=== PATIENT | male | born 1995 | race African-American/Black ===

== ENCOUNTER 2018-10-17 07:13 | Emergency (ER) | payer OTHER ==
[2018-10-17 08:09] LABS: BASO % 0.3 % (0.0-1.0); EOS % 0.5 % (0.0-3.0); HEMATOCRIT 43.5 % (42.0-52.0); HEMOGLOBIN 14.7 g/dl (13.5-17.5); IMMATURE GRANULOCYTE % 0.1 % (0-3.0); LYMPH # 2.9 10^3/uL (1.5-6.5); LYMPH % 36.6 % (24.0-44.0); MEAN CORPUSCULAR HEMOGLOBIN 29.3 pg (27.0-33.0); MEAN CORPUSCULAR HGB CONC 33.8 g/dl (32.0-36.5); MEAN CORPUSCULAR VOLUME 86.8 fl (80.0-96.0); MONO # 0.4 10^3/uL (0.0-0.8); MONO % 4.4 % (0.0-5.0); NEUTROPHILS # 4.6 10^3/uL (1.8-7.7); NEUTROPHILS % 58.1 % (36.0-66.0); PLATELET COUNT, AUTOMATED 187 10^3/uL (150-450); RED BLOOD COUNT 5.01 10^6/uL (4.30-6.10); RED CELL DISTRIBUTION WIDTH 11.9 % (11.5-14.5)
[2018-10-17 08:38] LABS: ALBUMIN 4.4 GM/DL (3.2-5.2); ALBUMIN/GLOBULIN RATIO 1.33 (1.00-1.93); ALKALINE PHOSPHATASE 99 U/L (45-117); ALT/SGPT 25 U/L (12-78); ANION GAP 6 MEQ/L (8-16); AST/SGOT 15 U/L (7-37); BILIRUBIN,TOTAL 0.5 MG/DL (0.2-1.0); BLOOD UREA NITROGEN 9 MG/DL (7-18); CALCIUM LEVEL 9.1 MG/DL (8.5-10.1); CARBON DIOXIDE LEVEL 29 MEQ/L (21-32); CHLORIDE LEVEL 105 MEQ/L (98-107); CREATININE FOR GFR 1.09 MG/DL (0.70-1.30); GLOMERULAR FILTRATION RATE > 60.0 (>60); GLUCOSE, FASTING 104 MG/DL (70-100); POTASSIUM SERUM 3.9 MEQ/L (3.5-5.1); SODIUM LEVEL 140 MEQ/L (136-145); TOTAL PROTEIN 7.7 GM/DL (6.4-8.2)
[2018-10-17] MEDS: EXPOSURE KIT-ADULT 7 DAY SUPPLY PO (08:45)
[2018-10-17 09:18] LABS: HEPATITIS B SURFACE ANTIBODY POSITIVE (POSITIVE)
[2018-10-17 09:29] LABS: HEPATITIS B SURFACE ANTIGEN NEGATIVE (NEGATIVE)
[2018-10-17 09:50] LABS: CHLAMYDIA DNA AMPLIFICATION NEGATIVE (NEGATIVE); GC DNA AMPLIFICATION NEGATIVE (NEGATIVE)
[2018-10-17 09:57] LABS: HEPATITIS C VIRUS ABY INDEX 0.1 INDEX (<0.8)
== END 2018-10-17 08:51 | disposition home or self-care (01) ==
LOC: M ED 07:13
DX: Z20.2 Contact with and (suspected) exposure to infections with a predominantly sexual mode of transmission (principal)
CPT/HCPCS: 80053

== ENCOUNTER 2018-12-25 14:31 | Emergency (ER) | payer OTHER ==
[~2018-12-25] VITALS: Ht 170.2 cm; Wt 67.3 kg
[~2018-12-25 14:31] MED LIST: RALT40TA PO; TRUVTAB PO
[2018-12-25 16:45] LABS: CHLAMYDIA DNA AMPLIFICATION NEGATIVE (NEGATIVE); GC DNA AMPLIFICATION NEGATIVE (NEGATIVE)
[2018-12-25 17:18] VITALS: BP 128/64
== END 2018-12-25 17:19 | disposition home or self-care (01) ==
LOC: M ED 14:31
DX: Z11.3 Encounter for screening for infections with a predominantly sexual mode of transmission (principal); Z79.899 Other long term (current) drug therapy

== ENCOUNTER 2019-03-28 12:17 | Emergency (ER) | payer OTHER ==
[~2019-03-28] VITALS: Ht 172.7 cm; Wt 68.2 kg
[2019-03-28] MEDS ORDERED: NAPROXEN 250 MG TAB PO ONE (15:15)
--- NOTE | 2019-03-28 15:42 | REP ---
Clinical: Lower back pain and point tenderness . Technique: AP, lateral, bilateral oblique, and coned-down views. Findings: Alignment and lordosis is maintained. The vertebral bodies including transverse process and spinous processes are intact and normal. There is no evidence for acute fracture / compression injury or subluxation. No evidence for spondylolysis or spondylolisthesis. No significant degenerative change is noted. Impression: Normal lumbosacral spine radiograph series. Electronically Signed by Benjy Hernandes MD 03/28/2019 03:33 P
[2019-03-28] MEDS ORDERED: ZANA4TAB PO (15:49)
[2019-03-28] MEDS ORDERED: MOBI4TAB PO (15:49)
[2019-03-28 15:51] VITALS: BP 134/83
== END 2019-03-28 16:00 | disposition home or self-care (01) ==
LOC: M ED 12:17
DX: M54.5 Low back pain (principal); Z79.899 Other long term (current) drug therapy

== ENCOUNTER 2019-07-04 06:57 | Emergency (ER) | payer OTHER ==
[~2019-07-04] VITALS: Ht 170.2 cm; Wt 65.5 kg
[2019-07-04 06:57] VITALS: BP 167/95
[~2019-07-04 06:57] MED LIST changes: +MOBI4TAB PO; +ZANA4TAB PO
[2019-07-04] MEDS ORDERED: CYCL10TA PO (07:13)
[2019-07-04] MEDS ORDERED: IBUP80TA PO (07:13)
[2019-07-04] MEDS ORDERED: KETOROLAC 60 MG/2 ML VIAL (J1885) IM ONE (07:15)
== END 2019-07-04 07:55 | disposition home or self-care (01) ==
LOC: M ED 06:57
DX: S29.012A Strain of muscle and tendon of back wall of thorax, initial encounter (principal); X58.XXXA Exposure to other specified factors, initial encounter; Y92.89 Other specified places as the place of occurrence of the external cause; M62.830 Muscle spasm of back
CPT/HCPCS: 96372; 99283; J1885

== ENCOUNTER 2019-07-31 19:03 | Emergency (ER) | payer OTHER ==
[~2019-07-31] VITALS: Ht 170.2 cm; Wt 65.5 kg
[~2019-07-31 19:03] MED LIST changes: +CYCL10TA PO; +IBUP80TA PO
[2019-07-31] MEDS ORDERED: NS 1,000 ML IV ONE (19:45)
[2019-07-31 20:19] LABS: HEMATOCRIT 40.3 % (42.0-52.0); HEMOGLOBIN 13.7 g/dl (13.5-17.5); MEAN CORPUSCULAR HEMOGLOBIN 29.8 pg (27.0-33.0); MEAN CORPUSCULAR VOLUME 87.6 fl (80.0-96.0); PLATELET COUNT, AUTOMATED 191 10^3/uL (150-450)
[2019-07-31 20:55] LABS: ACETAMINOPHEN LEVEL < 2.0 UG/ML (10.0-30.0); ALBUMIN 3.8 GM/DL (3.2-5.2); ALT/SGPT 25 U/L (12-78); BILIRUBIN,DIRECT 0.1 MG/DL (0.0-0.2); BILIRUBIN,TOTAL 0.3 MG/DL (0.2-1.0); BLOOD UREA NITROGEN 9 MG/DL (7-18); CALCIUM LEVEL 8.6 MG/DL (8.5-10.1); CARBON DIOXIDE LEVEL 30 MEQ/L (21-32); CHLORIDE LEVEL 107 MEQ/L (98-107); CREATININE FOR GFR 0.96 MG/DL (0.70-1.30); ETHYL ALCOHOL (ETHANOL) 0.003 % (0.000-0.010); GLOMERULAR FILTRATION RATE > 60.0 (>60); GLUCOSE, FASTING 85 MG/DL (70-100); POTASSIUM SERUM 3.7 MEQ/L (3.5-5.1); SALICYLATE LEVEL < 1.7 MG/DL (5.0-30.0); SODIUM LEVEL 143 MEQ/L (136-145); TOTAL PROTEIN 6.9 GM/DL (6.4-8.2)
[2019-07-31 20:59] LABS: AMPHETAMINES LEVEL URINE NEGATIVE (NEGATIVE); BARBITURATES URINE NEGATIVE (NEGATIVE); BENZODIAZEPINES URINE NEGATIVE (NEGATIVE); CANNABINOIDS URINE NEGATIVE (NEGATIVE); COCAINE METABOLITE URINE NEGATIVE (NEGATIVE); METHADONE URINE NEGATIVE (NEGATIVE); OPIATES URINE NEGATIVE (NEGATIVE); PHENCYCLIDINE URINE NEGATIVE (NEGATIVE)
[2019-08-01] MEDS ORDERED: IBUP1TAB7 PO (04:53)
[2019-08-01] MEDS ORDERED: ARTIDRO2 OU (04:53)
[2019-08-01] MEDS ORDERED: CYCL10TA PO (04:53)
--- NOTE | 2019-08-01 07:10 | ECGEPIP ---
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
[2019-08-01 09:45] VITALS: BP 131/71
== END 2019-08-01 09:46 ==
LOC: M ED 19:03
DX: T50.992A Poisoning by other drugs, medicaments and biological substances, intentional self-harm, initial encounter (principal); X58.XXXA Exposure to other specified factors, initial encounter; Y92.89 Other specified places as the place of occurrence of the external cause; D55.0 Anemia due to glucose-6-phosphate dehydrogenase [G6PD] deficiency
CPT/HCPCS: 36415; 80048; 80076; 80307; 84443; 85027; 93005; 99285; G0480

== ENCOUNTER 2019-08-23 07:57 | Emergency (ER) | payer OTHER ==
[~2019-08-23] VITALS: Ht 170.2 cm; Wt 68.5 kg
[~2019-08-23 07:57] MED LIST changes: +ARTIDRO2 OU; +IBUP1TAB7 PO
--- NOTE | 2019-08-23 09:03 | REP ---
Three views soft tissue neck: 08/23/2019. Indication: Globus sensation. Foreign body search. Comparison: None. Findings: Soft tissues of the neck are normal. There is straightening of the cervical lordosis. There is no acute fracture, subluxation or dislocation. Impression: No foreign body identified. Electronically Signed by Rodolfo Rendon DO 08/23/2019 08:55 A
[2019-08-23] MEDS ORDERED: SUCRALFATE SUSP 1GM/10ML UD PO ONE (09:15)
[2019-08-23] MEDS ORDERED: SUCR1SS PO (09:49)
[2019-08-23 09:59] VITALS: BP 128/71
== END 2019-08-23 10:02 | disposition home or self-care (01) ==
LOC: M ED 07:57
DX: K20.8 Other esophagitis (principal)

== ENCOUNTER 2019-10-24 10:00 | Emergency (ER) | payer OTHER ==
[~2019-10-24] VITALS: Ht 170.2 cm; Wt 69.5 kg
[2019-10-24 10:00] VITALS: BP 130/67
[~2019-10-24 10:00] MED LIST changes: +SUCR1SS PO
[2019-10-24] MEDS ORDERED: PROT1TAB2 PO (10:49)
== END 2019-10-24 11:03 | disposition home or self-care (01) ==
LOC: M ED 10:00
DX: R13.10 Dysphagia, unspecified (principal); K20.9 Esophagitis, unspecified

== ENCOUNTER → 2019-10-25 | Outpatient (CLI) | payer OTHER ==
[~2019-10-25] MED LIST changes: +E-Z-GAS II EFFERVESCENT PACKET (SODIUM BICARB./CITRIC ACID/SIMETHICONE) As Ordered ONE; +E-Z-HD 98% w/w 340GM SUSP BTL As Ordered ONE; +E-Z-PAQUE 96% w/w SUSP 176GM BTL As Ordered ONE; +PROT1TAB2 PO
--- NOTE | 2019-10-26 09:03 | REP ---
Examination Requested: Upper G.I. Series With KUB Reason For Exam: Dysphasia Upper GI Air Contrast The procedure was performed by TROY Jeffers, under the direct supervision of Dr. Hernandes. The images were reviewed with Dr. Hernandes. The composite technician film shows no organomegaly or pathological masses. The intestinal gas pattern appears normal. Liquid barium and gas producing crystals were given in the erect position as well as liquid barium in the prone oblique position in order to perform a double contrast upper GI examination. The oral and pharyngeal stages of deglutition were unremarkable. Esophageal transport is efficient and there is no esophagitis, stricture, or mucosal ring noted. There is no hiatal hernia. Gastroesophageal reflux was not visualized throughout the course of the exam. The stomach mcpherson are normally outlined. The rugal folds are smooth and regular. There is no gastritis, neoplasm, ulcer disease noted. The duodenal mcpherson are normally outlined. The mucosal folds are smooth and regular. There is no duodenitis, peptic ulcer disease, or neoplasm noted. The visualized portion of the proximal small bowel appears normal in course and caliber. Impression: 1. Unremarkable upper GI. 0.7 minutes of fluoroscopy time was utilized for this procedure. Some fluoroscopic images are performed with last image hold technology. These images require no additional radiation. Reviewed by TROY Escudero 10/25/2019 12:57 P Electronically Signed by Benjy Hernandes MD 10/26/2019 08:54 A
== END ==
LOC: M RAD 10:56
PROVIDERS: ATTEND Emergency Medicine
DX: R13.10 Dysphagia, unspecified (principal)

== ENCOUNTER → 2020-03-09 | Outpatient (CLI) | payer OTHER ==
[~2020-03-09] MED LIST changes: -ARTIDRO2 OU; +CYCL-707 PO; -CYCL10TA PO; -E-Z-GAS II EFFERVESCENT PACKET (SODIUM BICARB./CITRIC ACID/SIMETHICONE) As Ordered ONE; -E-Z-HD 98% w/w 340GM SUSP BTL As Ordered ONE; -E-Z-PAQUE 96% w/w SUSP 176GM BTL As Ordered ONE; +POLYOPD OU
== END ==
LOC: M LABSMTC 09:28
PROVIDERS: ATTEND Anesthesiology
DX: Z01.818 Encounter for other preprocedural examination (principal); Z11.59 Encounter for screening for other viral diseases
CPT/HCPCS: C9803; U0002

== ENCOUNTER 2020-03-11 12:16 | Day surgery (SDC) | payer OTHER ==
[~2020-03-11] VITALS: Ht 170.2 cm; Wt 68.0 kg
[~2020-03-11 12:16] MED LIST changes: +NS 1,000 ML IV ONE
[2020-03-11] MEDS ORDERED: LIDOCAINE 2% 100MG/5ML SDV (FOR ANES.) As Ordered ONE (13:20)
[2020-03-11] MEDS ORDERED: propofoL 200 MG/20 ML VIAL As Ordered ONE (13:20)
[2020-03-11 14:10] VITALS: BP 135/85
--- NOTE | 2020-03-11 14:12 | ROOR ---
Patient Name: Magnus Brewer Procedure Date: 03/11/2020 1:37 PM Date of : 1995 Age: 24 Room: [facility] Gender: Male Note Status: Finalized Procedure: Upper GI endoscopy Indications: Globus sensation Providers: Christian Cameron MD Referring MD: ARTHUR ARTEAGA MD Requesting Provider: Medicines: Monitored Anesthesia Care Complications: No immediate complications. Procedure: Pre-Anesthesia Assessment: - The heart rate, respiratory rate, oxygen saturations, blood pressure, adequacy of pulmonary ventilation, and response to care were monitored throughout the procedure. The Endoscope was introduced through the mouth, and advanced to the second part of duodenum. The upper GI endoscopy was accomplished without difficulty. The patient tolerated the procedure well. Findings: The Z-line was regular and was found 40 cm from the incisors. The exam was otherwise without abnormality. No other significant abnormalities were identified in a careful examination of the stomach. The exam of the duodenum was otherwise normal. Impression: - Z-line regular, 40 cm from the incisors. - The examination was otherwise normal. - No specimens collected. - The examination was otherwise normal. Recommendation: - Patient has a contact number available for emergencies. The signs and symptoms of potential delayed complications were discussed with the patient. Return to normal activities tomorrow. Written discharge instructions were provided to the patient. - High fiber diet. - Discharge patient to home. - Follow an antireflux regimen. - Continue present medications. - Return to referring physician. - The findings and recommendations were discussed with the patient. Christian Cameron MD Christian Cameron MD 03/11/2020 2:11:37 PM Electronically signed by Christian Cameron MD Number of Addenda: 0 Note Initiated On: 03/11/2020 1:37 PM Estimated Blood Loss: Estimated blood loss: none.
== END 2020-03-11 14:31 | disposition home or self-care (01) ==
LOC: M OPP 12:16
PROVIDERS: ATTEND Internal Medicine Gastroenterology
DX: F45.8 Other somatoform disorders (principal); K21.9 Gastro-esophageal reflux disease without esophagitis

== ENCOUNTER 2020-09-10 08:53 | Day surgery (SDC) | payer OTHER ==
[~2020-09-10] VITALS: Ht 170.2 cm; Wt 68.4 kg
[~2020-09-10 08:53] MED LIST changes: +LR 1,000 ML IV ONE; -NS 1,000 ML IV ONE; +dexameTHASONE 4 MG/ML 1ML VIAL (J1100 PER 1MG) IV ONE
[2020-09-10] MEDS ORDERED: MIDAZOLAM INJ 2MG/2ML VIAL (J2250 PER 1MG) As Ordered ONE (09:20)
[2020-09-10] MEDS ORDERED: fentaNYL 100 MCG/2 ML INJECTION (J3010) As Ordered ONE ×2 (09:20→12:24)
[2020-09-10] MEDS ORDERED: ONDANSETRON 4MG/2ML VIAL As Ordered ONE (09:20)
[2020-09-10] MEDS ORDERED: propofoL 200 MG/20 ML VIAL As Ordered ONE (09:20)
[2020-09-10] MEDS ORDERED: ROCURONIUM BROMIDE 50 MG/5 ML VIAL As Ordered ONE (09:20)
[2020-09-10] MEDS ORDERED: dexameTHASONE 4 MG/ML 1ML VIAL (J1100 PER 1MG) As Ordered ONE (09:20)
[2020-09-10] MEDS ORDERED: SUGAMMADEX SODIUM 500 MG/5 ML VIAL (BRIDION) As Ordered ONE (09:20)
[2020-09-10] MEDS ORDERED: LIDOCAINE 2% 100MG/5ML SDV (FOR ANES.) As Ordered ONE (09:20)
[2020-09-10] MEDS ORDERED: oxyCODONE 5MG TAB PO PRN (11:45)
[2020-09-10] MEDS ORDERED: fentaNYL 100 MCG/2 ML INJECTION (J3010) IV PRN (11:45)
[2020-09-10] MEDS ORDERED: LR 1,000 ML IV SCH ×2 (11:45)
[2020-09-10] MEDS ORDERED: ONDANSETRON 4MG/2ML VIAL IV PRN (11:45)
[2020-09-10 13:10] VITALS: BP 141/87
[2020-09-11] MEDS ORDERED: HYDR1SOL PO (16:04)
--- NOTE | 2020-09-14 10:58 | RO ---
DATE OF OPERATION: 09/10/2020 SURGEON: Moi Eckert MD PREOPERATIVE DIAGNOSIS: Chronic tonsillitis, halitosis and adenoid hypertrophy. POSTOPERATIVE DIAGNOSIS: Chronic tonsillitis, halitosis and adenoid hypertrophy. ANESTHESIA: General. CLINICAL PREAMBLE: This 25-year-old man presented to the office with history of chronic halitosis, also noted to have chronic sore throat and numerous tonsilloliths. He also complains of chronic nasal congestion. Physical examination revealed presence of cryptic tonsils. Management options including surgery listed above had been discussed. The patient understood and consented to procedure. DESCRIPTION OF PROCEDURE: Patient was identified in the preoperative holding and brought to the operating room in stable condition. In supine position on the operating table, patient received general anesthesia followed by orotracheal intubation without incident. Patient was prepped and draped in the usual fashion for the procedure. The Aniyah-Seymour mouth gag was inserted and suspended. Attention was then turned to performing the revision adenoidectomy. The red rubber catheter was inserted via the right naris to retract the soft palate using a mirror, the hypertrophic adenoid tissue was visualized. Using the Coblator wand set at 7 for Coblation and 3 for coagulation, the hypertrophic adenoid tissue was ablated. Hemostasis was achieved. The right tonsil was medialized using curved Allis forceps. Mucosal incision was made over the superior pole of the right tonsil using the Coblator wand set at 7 for Coblation. The tonsillar capsule was identified, and dissection was carried out along this plane to excise the right tonsil. The left tonsil was then similarly dissected out. At the end of the procedure, both tonsil beds were free of bleeding. Estimated blood loss was less than 10 cc. No complication was encountered. Sponge and instrument counts were correct at the end of the procedure. General anesthesia was reversed, and patient was extubated and brought to the recovery room in stable condition. THUAN
== END 2020-09-10 13:34 | disposition home or self-care (01) ==
LOC: M SDC 08:53
PROVIDERS: ATTEND Otolaryngology
DX: J35.01 Chronic tonsillitis (principal); R19.6 Halitosis
CPT/HCPCS: 42821; 88302; J1100; J2250; J2405; J3010; U0002

== ENCOUNTER 2020-09-11 15:40 | Emergency (ER) | payer OTHER ==
[~2020-09-11] VITALS: Ht 170.2 cm; Wt 68.2 kg
[~2020-09-11 15:40] MED LIST changes: -LR 1,000 ML IV ONE; -dexameTHASONE 4 MG/ML 1ML VIAL (J1100 PER 1MG) IV ONE
[2020-09-11] MEDS ORDERED: NS 1,000 ML IV ONE (16:00)
[2020-09-11] MEDS ORDERED: dexameTHASONE 20MG/5ML VIAL (J1100 PER 1MG) IV ONE (16:00)
[2020-09-11] MEDS ORDERED: HYDR1SOL PO (16:04)
[2020-09-11 19:11] VITALS: BP 99/51
== END 2020-09-11 19:14 | disposition home or self-care (01) ==
LOC: M ED 15:40
DX: E86.0 Dehydration (principal); Z91.011 Allergy to milk products
CPT/HCPCS: 96361; 96374; 99284; J1100

== ENCOUNTER 2020-12-10 07:42 | Emergency (ER) | payer OTHER ==
[~2020-12-10] VITALS: Ht 170.2 cm; Wt 72.3 kg
[~2020-12-10 07:42] MED LIST changes: +HYDR1SOL PO
--- OUTSIDE RECORDS SUMMARY | 2020-12-10 07:47 | CCD | Continuity of Care Document ---
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 Name Role Phone Ana Cristina Fuentes P.A.-c AUTM Unavailable AUTM Unavailable Jazz Hilton AUTM [phone] Problems Description No Active Problems Social History Type Date Description Comments Sex Unknown ETOH Use 3 A Month Tobacco Use Start: Unknown Non Smoker Allergies, Adverse Reactions, Alerts Description No Known Drug Allergies Medications Active Medications SIG Qnty Indications Ordering Provide r Date Hydrocodone Bitartrate/Acetaminophen 7.5-325mg/15ML Solution 15 milliliters by mouth every 6 hours as needed for pa in 300ml Moi Eckert MD 09/10/2020 History Medications No Active Medications Unknown - 09/10/2020 Immunizations Description No Information Available Vital Signs Date Vital Result Comment 09/17/2020 11:19am Height 67 inches 5'7" Weight 143.00 lb BMI (Body Mass Index) 22.4 kg/m2 [place] Body Weight 148 lb Weight 64.865 kg BSA (Body Surface Area) 1.75 m2 08/27/2020 11:14am Height 67 inches 5'7" Weight 150.00 lb BMI (Body Mass Index) 23.5 kg/m2 [place] Body Weight 148 lb Weight 68.040 kg BSA (Body Surface Area) 1.79 m2 Results Test Acquired Date Facility Test Result H/L Range Note Laboratory test finding 09/10/2020 [facility] [address] [place] [address] [phone] Pathology Request For Service (SEE NOTE) 1 Laboratory test finding 09/10/2020 [facility] [address] [place] [address] [phone] Coronavirus 2019 Nasopharygeal <pending> 2 Sars Covid-19 Amplification NEGATIVE Normal Negative 3 1 FINAL DIAGNOSIS A - Right tonsil, tonsillectomy: Lymphoid follicular hyperplasia. Actinomyces colonies are noted in tonsillar crypts. B - Left tonsil, tonsillectomy: Lymphoid follicular hyperplasia. Actinomyces colonies are noted in tonsillar crypts. 09/11/2020 - 1117 CLINICAL DIAGNOSIS Chronic tonsillitis 09/10/2020 - 1453 GROSS DIAGNOSIS A - Received in formalin labeled "right tonsil" is a 2.5 x 1.5 x 1.5 cm. tonsil. The mucosal lining is smooth. Sectioning reveals multiple crypts containing debris. Steel Fabricator in one. B - Received in formalin labeled "left tonsil" is a 2.7 x 2 x 0.9 cm. tonsil. The mucosal lining is smooth. Sectioning does not reveal and gross lesion. Steel Fabricator in one. - 09/10/20201453 Signed Liam Thompson MD 09/11/2020 1153 2 Comments: PRE PROCEDURE By: RICCI Time: 723 3 A false negative result may occur if a specimen is improperly collected, transported or handled. False negative results may also occur if inadequate numbers of organisms are present in the specimen. As with any molecular test, mutations within the target regions of Xpert Xpress SARS-CoV-2 could affect primer and/or probe binding resulting in failure to detect the presence of virus. This test cannot rule out diseases caused by other bacterial or viral pathogens. DISCLAIMER: Testing was performed using the [employer] SARS-CoV-2 test. This test was developed and its performance characteristics determined by [employer]. This test has not been FDA cleared or approved. This test has been authorized by FDA under an Emergency Use Authorization (EUA). This test is only authorized for the duration of time the declaration that circumstances exist justifying the authorization of the emergency use of in vitro diagnostic tests for detection of SARS-CoV-2 virus and/or diagnosis of COVID-19 infection under section 564(b)(1) of the Act, 21 U.S.C. 360bbb-3(b)(1), unless the authorization is terminated or revoked sooner. Procedures Description No Information Available Medical Devices Description No Information Available Encounters Type Date Location Provider Dx Diagnosis Office Visit 08/27/2020 10:45a [facility] Moi Eckert MD J35.01 Chronic tonsillitis R19.6 Halitosis R07.0 Pain in throat Assessments Date Code Description Provider 09/17/2020 J35.01 Chronic tonsillitis Nick Escamilla II, PA-C 09/17/2020 R19.6 Halitosis Nick Escamilla II, PA-C 08/27/2020 J35.01 Chronic tonsillitis Moi Eckert MD 08/27/2020 R19.6 Halitosis Moi Eckert MD 08/27/2020 R07.0 Pain in throat Moi Eckert MD Plan of Treatment 09/17/2020 - Nick Escamilla II, PA-C* J35.01 Chronic tonsillitis* Follow up:* PRN * R19.6 Halitosis Functional Status Description No Information Available Mental Status Description No Information Available Referrals Refer to Dr Reason [place] Ref[place] [id number] [place] [id number] [phone] Moi Eckert MD other chronic diseases of t onsils & adenoids office consult new or estab pt (1) 07/18/2020-01/14/2021 office/outpatient visit estab (3) 07/18/2020-07/18/2021 Scheduled 08/27/[address] [place] [id number] [phone]
--- OUTSIDE RECORDS SUMMARY | 2020-12-10 07:47 | CCD ---
[facility] Organization [facility] Address Unknown Phone Unavailable Care Team Providers Care Grievance Coordinator Name Role Phone Dulce Cameron MD Unavailable Unavailable Dulce Cameron MD Unavailable Unavailable Dulce Cameron MD Unavailable Unavailable Dulce Cameron MD Unavailable Unavailable Dulce Cameron MD Unavailable Unavailable Dulce Cameron MD Unavailable Unavailable Dulce Cameron MD Unavailable Unavailable Dulce Cameron MD Unavailable Unavailable Dulce Cameron MD Unavailable Unavailable Dulce Cameron MD Unavailable Unavailable Dulce Cameron MD Unavailable Unavailable Dulce Cameron MD Unavailable Unavailable Dulce Cameron MD Unavailable Unavailable Dulce Cameron MD Unavailable Unavailable Dulce Cameron MD Unavailable Unavailable Dulce Cameron MD Unavailable Unavailable Dulce Cameron MD Unavailable Unavailable Dulce Cameron MD Unavailable Unavailable Dulce Cameron MD Unavailable Unavailable Dulce Cameron MD Unavailable Unavailable Dulce Cameron MD Unavailable Unavailable Dulce Cameron MD Unavailable Unavailable Dulce Cameron MD Unavailable Unavailable Dulce Cameron MD Unavailable Unavailable Dulce Cameron MD Unavailable Unavailable Dulce Cameron MD Unavailable Unavailable Dulce Cameron MD Unavailable Unavailable Dulce Cameron MD Unavailable Unavailable Dulce Cameron MD Unavailable Unavailable Dulce Cameron MD Unavailable Unavailable Dulce Cameron MD Unavailable Unavailable Dulce Cameron MD Unavailable Unavailable Dulce Cameron MD Unavailable Unavailable Nisha, S Christian VENEGAS Unavailable Unavailable Nisha S Christian VENEGAS Unavailable Unavailable Nisha S Christian VENEGAS Unavailable Unavailable Nisha S Christian VENEGAS Unavailable Unavailable Nisha S Christian MD Unavailable Unavailable Nisha S Christian MD Unavailable Unavailable Nisha S Christian MD Unavailable Unavailable Nisha S Christian MD Unavailable Unavailable Nisha S Christian VENEGAS Unavailable Unavailable Nisha S Christian VENEGAS Unavailable Unavailable Nisha S Christian VENEGAS Unavailable Unavailable Nisha S Christian VENEGAS Unavailable Unavailable Nisha S Christian VENEGAS Unavailable Unavailable Nisha S Christian VENEGAS Unavailable Unavailable Nisha S Christian VENEGAS Unavailable Unavailable Nisha S Christian VENEGAS Unavailable Unavailable Dulce Cameron MD Unavailable Unavailable Caio FOWLER MD Unavailable Unavailable Caio FOWLER MD Unavailable Unavailable Caio FOWLER MD Unavailable Unavailable Caio FOWLER MD Unavailable Unavailable Caio FOWLER MD Unavailable Unavailable Caio FOWELR MD Unavailable Unavailable Caio FOWLER MD Unavailable Unavailable Caio FOWLER MD Unavailable Unavailable Caio FOWLER MD Unavailable Unavailable Caio FOWLER MD Unavailable Unavailable Caio FOWLER MD Unavailable Unavailable Caio FOWLER MD Unavailable Unavailable Caio FOWLER MD Unavailable Unavailable Caio FOWLER MD Unavailable Unavailable Caio FOWLER MD Unavailable Unavailable Caio FOWLER MD Unavailable Unavailable Caio FOWLER MD Unavailable Unavailable Caio FOWLER MD Unavailable Unavailable Caio FOWLER MD Unavailable Unavailable Caio FOWLER MD Unavailable Unavailable Caio FOWLER MD Unavailable Unavailable Caio FOWLER MD Unavailable Unavailable Caio FOWLER MD Unavailable Unavailable Caio FOWLER MD Unavailable Unavailable Caio FOWLER MD Unavailable Unavailable Caio FOWLER MD Unavailable Unavailable Caio FOWLER MD Unavailable Unavailable Caio FOWLER MD Unavailable Unavailable Caio FOWLER MD Unavailable Unavailable Caio FOWLER MD Unavailable Unavailable Caio FOWLER MD Unavailable Unavailable Caio FOWLER MD Unavailable Unavailable Caio FOWLER MD Unavailable Unavailable Caio FOWLER MD Unavailable Unavailable Caio FOWLER MD Unavailable Unavailable TURRIN, MATTHEW Unavailable Unavailable TURRIN, MATTHEW Unavailable Unavailable TURRIN, MATTHEW Unavailable Unavailable TURRIN, MATTHEW Unavailable Unavailable Re-disclosure Warning The records that you are about to access may contain information from federally-assisted alcohol or drug abuse programs. If such information is present, then the following federally mandated warning applies: This information has been disclosed to you from records protected by federal confidentiality rules (42 CFR part 2). The federal rules prohibit you from making any further disclosure of this information unless further disclosure is expressly permitted by the written consent of the person to whom it pertains or as otherwise permitted by 42 CFR part 2. A general authorization for the release of medical or other information is NOT sufficient for this purpose. The Federal rules restrict any use of the information to criminally investigate or prosecute any alcohol or drug abuse patient.The records that you are about to access may contain highly sensitive health information, the redisclosure of which is protected by Article 27-F of the [facility] Public Health law. If you continue you may have access to information: Regarding HIV / AIDS; Provided by facilities licensed or operated by the [facility] Office of Mental Health; or Provided by the [facility] Office for People With Developmental Disabilities. If such information is present, then the following [facility] mandated warning applies: This information has been disclosed to you from confidential records which are protected by state law. State law prohibits you from making any further disclosure of this information without the specific written consent of the person to whom it pertains, or as otherwise permitted by law. Any unauthorized further disclosure in violation of state law may result in a fine or usp sentence or both. A general authorization for the release of medical or other information is NOT sufficient authorization for further disc losure. Encounters Encounter Providers Location Date Indications Data Source(s ) Outpatient Attender: DUY Fowler/Isi/Ben/Robby sherwood 08/27/2020 10:45:00 AM EDT [facility] ([facility]) Outpatient Attender: Christian Cameron MD Main Office 05/14/2020 02:30:00 PM EDT [facility] ([facility]) Outpatient Attender: Christian Cameron MD Main Office 02/25/2020 10:30:00 AM EDT [facility] ([facility]) Emergency Attender: MATTHEW OLSON 2019 09:36:00 AM EST - 12/19/2019 11:59:00 AM [facility] Patient discharged. Medications Medication Brand Name Start Date Product Form Dose Route Admi nistrative Instructions Pharmacy Instructions Status Indications Reaction Description Data Source(s) Acetaminophen 21.7 MG/ML / Hydrocodone Bitartrate 0.5 MG/ML Oral Solution Hydrocodone Bitartrate/Acetaminophen 09/10/2020 12:00:00 AM EST ORAL active [facility] ([facility], ) No Active Medications 08/27/2020 12:00:00 AM EDT completed [facility] ([facility], ) Omeprazole 40 MG Delayed Release Oral Capsule Omeprazole 02/25/2020 12:00:00 AM EDT ORAL active [facility] ([facility]) Insurance Providers Payer name Policy type / Coverage type Policy ID Covered democrat ID Covered democrat's relationship to rebolledo Policy Rebolledo Plan Information [facility] [id number] SP [id number] [facility] [employer] - O/P [id number] 18 [id number] [facility] O [id number] S [id number] [facility] [id number] S [id number] [facility] [employer] [id number] SP [id number] Problems, Conditions, and Diagnoses Code Display Name Description Problem Type Effective Dates Data Source(s) [id number] Dysphagia Dysphagia Problem 02/25/2020 12:00:00 AM ED T [facility] ([facility]) R531 Weakness Weakness Diagnosis 12/19/2019 09:36:00 AM [facility] R42 Dizziness and giddiness Dizziness and giddiness Diagno sis 12/19/2019 09:36:00 AM [facility] Surgeries/Procedures Procedure Description Date Indications Data Source(s) UPPER GI NDSC DX W/WO COLLECTION SPECIMEN 03/11/2020 1 2:00:00 AM EDT [facility] ([facility]) Results ID Date Data Source [id number] 11/10/2020 10:16:00 AM EST [facility] Name Value Range Interpretation Code Description Data Sondra rce(s) Supporting Document(s) SARS coronavirus 2 RNA Not Detected [facility] [place] This lab was ordered by [facility] Laboratory and reported by [facility]. ID Date Data Source [id number] 09/10/2020 10:32:[address] [facility] ([facility], ) Name Value Range Interpretation Code Description Data Sondra rce(s) Supporting Document(s) Surgical pathology study Laboratory test result [facility] ([facility], ) FINAL DIAGNOSIS A - Right tonsil, tonsillectomy: Lymphoid follicular hyperplasia. Actinomyces colonies are noted in tonsillar crypts. B - Left tonsil, tonsillectomy: Lymphoid follicular hyperplasia. Actinomyces colonies are noted in tonsillar crypts. 09/11/2020 - 1116 CLINICAL DIAGNOSIS Chronic tonsillitis 09/10/2020 - 1453 GROSS DIAGNOSIS A - Received in formalin labeled "right tonsil" is a 2.5 x 1.5 x 1.5 cm. tonsil. The mucosal lining is smooth. Sectioning reveals multiple crypts containing debris. [employer] in one. B - Received in formalin labeled "left tonsil" is a 2.7 x 2 x 0.9 cm. tonsil. The mucosal lining is smooth. Sectioning does not reveal and gross lesion. [employer] in one. - 09/10/20201453 Signed Liam Thompson MD 09/11/2020 1153 ID Date Data Source [id number] 09/10/2020 07:20:00 AM [facility] ([facility], ) Name Value Range Interpretation Code Description Data [facility] rce(s) Supporting Document(s) Coronavirus 2019 Nasopharygeal Laboratory test result [facility] ([facility], ) Comments: PRE PROCEDURE By: LPLANTZ Time: 07 Laboratory test finding (navigational concept) Laboratory test r esult Normal (applies to non-numeric results) [facility] ([facility], ) A false negative result may occur if a s pecimen is improperly collected, transported or handled. False [...] pathogens. DISCLAIMER: Testing was performed using the [employer] SARS-CoV-2 test. This test was developed and its performance characteristics determined by [employer]. This test has not been FDA cleared [...] the authorization is terminated or revoked sooner. ID Date Data Source [id number] 12/21/2019 01:34:00 [place] [address] RESPIRATORY CARE REPORT ==== ---------NAME------- NUMBER SEX AGE ADMIT DISC. XRAY# F/C TYPEFORTKAMRAN SAAVEDRA V [id number] M 24 12/19/19 12/19/[id number] SB4 E/R DATE OF : 1995 M/R# [id number] #: [id number] TR-08 LOCATION: EMERGENCY DEPT EKG [id number] COMPLE TE:12/20/19 02:15 T 62347 PHYSICIAN: WHITNEY ENRIQUEZ Name Value Range Interpretation Code Description Data Sondra rce(s) Supporting Document(s) ID Date Data Source [id number] 12/19/2019 09:36:00 AM EST [facility] 1 OrderSheet [facility] Emergency Department [address] [place] [address] Phone #: ext- [phone] 12/19/2019 09:25 Patient: KERI CUEVA V Sex: M : 1995 Age: 24yWEIGHT:68.0 kg (S) HEIGHT:67 inches (S) BMI:23.5ALLERGIES: No Known Drug Allergy, NoneCHIEF COMPLAINT: dizziness, weaknessDIAGNOSIS: Asthenia, DizzinessLAB ORDERSOrder Description Priority Entered Acknowledged InitialedUrinalysis (Clean STAT 09:40 12/19/19 09:40 Deonte Duran) Jazz Duran R.N. R.NTatyana; Verbal order per; Matthew Olson M.D.CBC w Diff STAT 09:46 12/19/2019 09:47 Whitney Duran Riccardo Jennifer R.N. M.D.;CMP STAT 09:46 12/19/2019 09:47 Whitney Duran Riccardo Jennifer R.N. M.D.;Troponin-T STAT 09:46 12/19/2019 09:47 Whitney Duran Riccardo Jennifer R.N. M.D.;DIAGNOSTIC STUDY ORDERSOrder Description Priority Entered Acknowledged InitialedMEDICATION/IV/DRIP/FLUID ORDERSOrder Description Priority Entered Acknowledged InitialedZofran ODT PO 4 09:46 12/19/2019 09:48 mg Whitney Duran Riccardo Jennifer R.N. M.D.;GENERAL ORDERSOrder Description Priority Entered Acknowledged InitialedEKG 09:46 12/19/2019 Ack'd: 09:47 09:48 Whitney Duran Riccardo Putnam, Jennifer Jennifer R.N. M.D.; R.N. 2 OrderSheet [facility] Emergency Department [address] [place] [address] Phone #: ext- [phone] 12/19/2019 09:25 Patient: KERI CUEVA V Sex: M : 1995 Age: 24y[Electronically signed by Roman Watt RN (11:59 12/19/2019)][Electronically signed by Matthew Olson M.D. (12:16 12/19/2019)][Electronically locked by Roman Watt RN (11:59 12/19/2019)] Name Value Range Interpretation Code Description Data Sondra rce(s) Supporting Document(s) ID Date Data Source [id number] 12/19/2019 09:36:00 AM [facility] 1 Medication Reconciliation Report [facility] Emergency Department [address] [place] [address] Phone #: ext- [phone] 12/19/2019 09:25 Patient: KERI CUEVA V Sex: M : 1995 Age: 24yWeight: 68.0 kgHeight/Length: 67 in.BMI: 23.5ALLERGIES: No Known Drug Allergy, NoneThe patient's Home Medications are listed below:NONE.The source(s) of the original Home Medication information:patientThe following Medications were given to the patient in the Emergency Department:Zofran ODT [PO] PO 4 mg, administered: 12/19/2019 9:48:00 AMThe following Medications were prescribed to the patient:Zofran 4 mg tablet Take 1 tablet four times a day as needed for 3 days -- Dispense 12 tablet. Refills: 0.Substitution permitted.Ph[facility] - [facility] [id number] [facility] ; [place] [address]. . -- Matthew Olson M.D. Name Value Range Interpretation Code Description Data Sondra rce(s) Supporting Document(s) ID Date Data Source [id number] 12/19/2019 09:36:00 AM [facility] 1 Medication Administration Record [facility] Emergency Department [address] [place] [address] Phone #: ext- [phone] 12/19/2019 09:25 Patient: KERI CUEVA V Sex: M : 1995 Age: 24yWeight: 68.0 kgHeight/Length: 67 inBMI: 23.5ALLERGIES: No Known Drug Allergy, None Date/Time Medication Administered Medication OrderedGiven ZOFRAN ODT [PO] (ONDANSETRON Zofran ODT PO 4 mg09:48 12/19/2019 [facility])Jazz Duran R.N. Dose: 4 mg Oral Disintegrating Tablets PO Name Value Range Interpretation Code Description Data Sondra rce(s) Supporting Document(s) ID Date Data Source [id number] 12/19/2019 09:36:00 AM [facility] 1 General Instructions [facility] Emergency Department [address] [place] [address] Phone #: ext- [phone] 12/19/2019 09:25 Patient: KERI CUEVA V Sex: M : 1995 Age: 24yAcute dizzinessAcute generalized weakness.INSTRUCTIONSAlternate Tylenol (Acetaminophen) or Motrin (Ibuprofen) for fever, temperature greater than 101 degreesorally. Take according to label instructions. No strenuous activity for two days. Return to work in twodays.Drink plenty of fluids. No alcohol.Warnings: Further evaluation is necessary. It is very important to follow up with a healthcare provider.GENERAL WARNINGS: Return or contact your physician immediately if your condition worsens orchanges unexpectedly, if not improving as expected, or if other problems arise. SPECIFICALLY, return ifyou develop chest pain, neck pain, jaw pain, shoulder pain, arm pain, back pain, fluttering sensation in yourchest, lightheadedness, fainting, numbness, weakness or extreme fatigue.Your Current Medications: .No home medication.Prescription Medications:Zofran 4 mg tablet Take 1 tablet four times a day as needed for 3 days -- Dispense 12 tablet. Refills: 0.Substitution permitted.Pharmacy - [facility] - [id number] [facility] ; [place] [address]. .Follow-up:Return to the emergency department as needed. Follow up with your healthcare provider in three days ifnot better. Call for an appointment. Reason for referral: evaluation and treatment. Summary of careprovided to patient via paper.Understanding of the discharge instructions verbalized by patient. Expected course of illness, dischargeinstructions, activity level, diet, prescriptions x1, follow-up appointment and risks and benefits of treatmentreviewed with patient and understanding verbalized. Agrees to plan of care. ADDITIONAL IN FORMATIONDizziness (Uncertain Cause) 2 General Instructions [facility] Emergency Department [address] [place] [address] Phone #: ext- [phone] 12/19/2019 09:25 Patient: KERI CUEVA V Sex: M : 1995 Age: 24yDizziness is a common symptom. It may be described as lightheadedness, spinning, or feeling likeyou are going to faint. Dizziness can have many causes.Be sure to tell the healthcare provider about: All medicines you take, including prescription, [id number], herbs, and supplements Any other symptoms you have Any health problems you are being treated for Any past major health problems you've had, such as a heart attack, balance issues, hearing problems, or blood pressure problems Anything that causes the dizziness to get worse or betterToday's exam did not show an exact cause for your dizziness. Other tests may be needed. Follow upwith your healthcare provider.Home care Dizziness that occurs with sudden standing may be a sign of mild dehydration. Drink extra fluids for the next few days. If you recently started a new medicine, stopped a medicine, or had the dose of a current medicine changed, talk with the prescribing healthcare provider. Your medicine plan may need adjustment. If dizziness lasts more than a few se conds, sit or lie down until it passes. This may help prevent injury in case you pass out. Get up slowly when you feel better. Don't drive or use power tools or dangerous equipment until you have had no dizziness for at least 48 hours.Follow-up careFollow up with your healthcare provider for further evaluation within the next 7 days or as advised.When to seek medical adviceCall your healthcare provider for any of the following: Worsening of symptoms or new symptoms Passing out or seizure Repeated vomiting 3 General Instructions [facility] Emergency Department [address] [place] [address] Phone #: ext- [phone] 12/19/2019 09:25 Patient: KERI CUEVA V Sex: M : 1995 Age: 24y Headache Palpitations (the sense that your heart is fluttering or beating fast or hard) Shortness of breath Blood in vomit or stool (black or red color) Weakness of an arm or leg or 1 side of the face Vision or hearing changes Trouble walking or speaking Chest, arm, neck, back, or jaw pain [id number] [employer]. [address] [place] [address], [place] [address]. All rights res erved. This information is not intended as asubstitute for professional medical care. Always follow your healthcare professional's instructions.Weakness with Uncertain CauseBased on your exam today, the exact cause of your weakness is not certain. But your weakness doesnot seem to be a sign of a serious illness at this time. Keep an eye on your symptoms and getmedical advice as instructed below.Home care Rest at home today. Don't over-exert yourself. Take any medicine as prescribed. For the next few days, drink extra fluids (unless your healthcare provider wants you to restrict fluids for other reasons). Don't skip meals. Unless otherwise directed, continue to take any prescription medicines. Contact your healthcare provider if you have any questions or concerns.Follow-up careFollow up with your healthcare provider, or as advised.When to seek medical adviceCall your healthcare provider right away for any of the following: Symptoms get worse Symptoms don't start getting better within 2 days 4 General Instructions [facility] Emergency Department [address] [place] [address] Phone #: ext- [phone] 12/19/2019 09:25 Patient: KERI CUEVA V Sex: M : 1995 Age: 24y Fever of 100.4 F (38 C) or higher, or as directed by your healthcare providerCall [phone] for any of these: Chest, arm, neck, jaw, or upper back pain Trouble breathing Numbness or weakness of the face, one arm, or one leg Slurred speech, confusion, or trouble speaking, walking, or seeing Blood in vomit or stool (black or red color) Loss of consciousness Severe headache [id number] [employer] [place] [address]. All rights reserved. This information is not intended as asubstitute for professional medical care. Always follow your healthcare professional's instructions.Fever Control (Adult)A fever is a normal reaction of your body to an illness. The temperature itself usually isn't harmful. Itactually helps your body fight infections. You don't need to treat a fever unless you feel veryuncomfortable.Home careFollow these tips to take care of yourself at home: If you feel warm, check your temperature. Dress in light clothing. This will help you lose extra body heat through your skin. The fever will go up if you wear extra layers or wrap in blankets. Fever causes your body to lose water through evaporation. Drink plenty of fluids. These include water, juice, clear sodas, avinash vicky, or lemonade.Fever medicinesYou can take acetaminophen every 4 to 6 hours if: You feel very uncomfortable Your oral temperature is 100.4F (38C) or higher 5 General Instructions [facility] Emergency Department [address] [place] [address] Phone #: ext- [phone] 12/19/2019 09:25 Patient: KERI CUEVA V Sex: M : 1995 Age: 24yIf you can't take or keep down oral medicine, ask your pharmacist for acetaminophen suppositories.You don't need a prescription for these.If the fever doesn't get better within 1 hour after you take acetaminophen, take ibuprofen. If thisworks, keep taking the ibuprofen every 6 to 8 hours.If you have chronic liver or kidney disease, talk with your healthcare provider before taking thesemedicines. Also talk with your provider if you ever had a stomach ulcer or GI (gastrointestinal)bleeding.If either medicine alone doesn't keep the fever down, you may switch off between the 2 medicinesevery 3 to 4 hours. But do this only if your healthcare provider has told you to. For example, takeibuprofen. Wait 3 hours. Then take acetaminophen. Wait 3 hours. Take ibuprofen, and so on. Followyour provider's instructions exactly.Don't give aspirin to anyone younger than age 19 who is ill with a fever. Aspirin can cause seriousside effects such as liver damage and Gisela syndrome. Although rare, Gisela syndrome is a veryserious illness usually found in children younger than age 15. The syndrome is closely linked to theuse of aspirin or aspirin-containing medicine during viral infection.Follow-up careFollow up with your healthcare provider if you don't get better after 48 hours.When to seek medical adviceCall your healthcare provider right away if any of these occur: Fever, as directed by your healthcare provider, or: o Fever of 100.4F (38C) or above lasting for 24 to 48 hours o Fever lasting more than 3 days, even without other symptoms o Fever that happens after visiting a foreign country o Fever that happens within a month after visiting a country with malaria. Malaria is a serious illness. A fever can still be malaria even if you took medicine to prevent it. The medicine does not work in all cases. Confusion or trouble thinking Headache or stiff neck Flat, small, purplish red spots on your skin Low blood pressure 6 General Instructions [facility] Emergency Department [address] [place] [address] Phone #: ext- [phone] 12/19/2019 09:25 Patient: KERI CUEVA V Sex: M : 1995 Age: 24y Fast heart rate Fast (rapid) breathing You are You just had surgery, another medical procedure, or were just discharged from the hospital Use of medicines that suppress the immune system (immunosuppressants). These include Prednisone, cancer medicines, and organ transplant rejection medicines. If you are not sure about whether your medicines suppress your immune system, ask your healthcare provider.Call 911Someone should call 911 if you: Are having trouble breathing or shortness of breath Are unresponsiveImportant reminderCall your healthcare provider if you get a fever after visiting a place where infectious diseases arecommon. Many people hop picker a cold or other virus while traveling. This usually goes away without aproblem. But, some places have more serious diseases. Fever with certain other symptoms maymean you have a serious illness. Symptoms to watch for include diarrhea, skin rashes, insect bites,and skin boils, or infections. Your provider may ask you: What you did on your trip How long you were there Where you stayed (hotel, crow house, tent) What you ate and drank If you were bitten by insects or other bugs If you swam in freshwater If you had sex or got a tattoo or piercing while you were thereCheck the [facility] to get more information about specific infectious diseases in the areas you havetraveled. [id number] [employer]. [address] [place] [address]. All rights reserved. This information is not intended as asubstitute for professional medical care. Always follow your healthcare professional's instructions. 7 General Instructions [facility] Emergency Department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
[2020-12-10] MEDS ORDERED: PEPTO BISMOL PO (07:51)
[2020-12-10] MEDS ORDERED: NS 1,000 ML IV ONE (08:15)
[2020-12-10] MEDS ORDERED: ONDANSETRON 4MG/2ML VIAL IV ONE (08:15)
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
[2020-12-10 08:49] LABS: BASO % 0.8 % (0.0-1.0); EOS # 0.1 10^3/uL (0.0-0.5); EOS % 1.2 % (0.0-3.0); HEMATOCRIT 45.4 % (42.0-52.0); HEMOGLOBIN 14.9 g/dl (13.5-17.5); LYMPH % 38.7 % (24.0-44.0); MEAN CORPUSCULAR HEMOGLOBIN 28.6 pg (27.0-33.0); MEAN CORPUSCULAR HGB CONC 32.8 g/dl (32.0-36.5); MEAN CORPUSCULAR VOLUME 87.1 fl (80.0-96.0); MONO # 0.3 10^3/uL (0.0-0.8); MONO % 6.3 % (0.0-5.0); NEUTROPHILS # 2.7 10^3/uL (1.5-8.5); NEUTROPHILS % 52.8 % (36.0-66.0); PLATELET COUNT, AUTOMATED 188 10^3/uL (150-450); RED BLOOD COUNT 5.21 10^6/uL (4.30-6.10); WHITE BLOOD COUNT 5.1 10^3/uL (4.0-10.0)
[2020-12-10 09:08] LABS: ALBUMIN 4.1 GM/DL (3.2-5.2); BILIRUBIN,DIRECT 0.1 MG/DL (0.0-0.2); BILIRUBIN,TOTAL 0.4 MG/DL (0.2-1.0); TOTAL PROTEIN 7.4 GM/DL (6.4-8.2)
[2020-12-10 09:29] VITALS: BP 131/74
== END 2020-12-10 09:34 | disposition home or self-care (01) ==
LOC: M ED 07:42
DX: R10.9 Unspecified abdominal pain (principal); R19.7 Diarrhea, unspecified; R11.0 Nausea; D75.A Glucose-6-phosphate dehydrogenase (G6PD) deficiency without anemia
CPT/HCPCS: 80047; 80076; 83690; 85025; 96361; 96374; 99284; J2405

== ENCOUNTER → 2021-04-17 | Outpatient (CLI) | payer OTHER ==
[~2021-04-17] MED LIST changes: +EMTR1TAB16 PO; +PEPTO BISMOL PO; -TRUVTAB PO
== END ==
LOC: M LABSMTC 11:40
PROVIDERS: ATTEND Pediatrics
DX: Z20.822 Contact with and (suspected) exposure to COVID-19 (principal)